=== PATIENT | female | born 1980 | race Caucasian/White ===

== ENCOUNTER 2017-07-12 18:20 | Emergency (ER) | payer MEDICAID ==
[2017-07-12 19:02] LABS: Bilirubin,Urine NEG (Negative); Blood,Urine NEG (Negative); Color,Urine Yellow (Yellow); Mucus,Urine 1+ /HPF; Urobilinogen,Urine < 2.0 mg/dL (<2.0)
[2017-07-12 19:25] LABS: Basophils % (Auto) 0.6 % (0.0-1.8); Eosinophils # (Auto) 0.1 K/mm3 (0.0-0.4); Hematocrit 37.8 % (30.3-42.9); Hemoglobin 12.3 gm/dl (10.1-14.3); Lymphocytes % (Auto) 26.4 % (13.4-35.0); Mean Corpuscular HGB Conc 33 % (30-34); Mean Corpuscular Hemoglobin 28 pg (28-32); Mean Corpuscular Volume 87 fl (79-97); Monocytes # (Auto) 0.7 K/mm3 (0.0-0.8); Platelet Count 193 K/mm3 (140-440); Red Blood Count 4.34 M/mm3 (3.65-5.03); Red Cell Distribution Width 13.2 % (13.2-15.2)
[2017-07-12 19:36] LABS: BUN/Creatinine Ratio 10; Blood Urea Nitrogen 6 mg/dL (7-17); Calcium 8.6 mg/dL (8.4-10.2); Hemolysis Index 4
[2017-07-12] MEDS ORDERED: NARCAN 0.4 MG/1 ML IV ONE (22:37)
--- NOTE | 2017-07-12 22:37 | Emergency Department Report ---
ED General Adult HPI - General Chief complaint: Overdose Stated complaint: POSS OD Time Seen by Provider: 07/12/17 21:57 Source: patient Mode of arrival: Ambulatory Limitations: Other - Related Data Allergies Allergy/AdvReac Type Severity Reaction Status Date / Time No Known Allergies Allergy Verified 07/13/17 04:27 ED Review of Systems ROS: Stated complaint: POSS OD Other details as noted in HPI ED Past Medical Hx - Past Medical History Hx Psychiatric Treatment: Yes (schizophrenia) - Social History Smoking Status: Current Every Day Smoker Substance Use Type: None ED Physical Exam - General Limitations: Other ED Course Vital Signs 07/12/17 07/12/17 07/12/17 18:33 22:00 23:29 Temperature 97.6 F Pulse Rate 95 H 62 Respiratory 16 16 16 Rate Blood Pressure 98/63 Blood Pressure 86/43 [Left] O2 Sat by Pulse 97 97 Oximetry 07/13/17 07/13/17 00:00 02:27 Temperature Pulse Rate 58 L 62 Respiratory 16 14 Rate Blood Pressure Blood Pressure 88/44 98/57 [Left] O2 Sat by Pulse 100 100 Oximetry ED Medical Decision Making - Lab Data Result diagrams: 07/12/17 19:11 07/12/17 19:11 Lab Results 07/12/17 07/12/17 07/12/17 Range/Units 19:11 19:11 19:11 WBC (4.5-11.0) K/mm3 RBC (3.65-5.03) M/mm3 Hgb (10.1-14.3) gm/dl Hct (30.3-42.9) % MCV (79-97) fl MCH (28-32) pg MCHC (30-34) % RDW (13.2-15.2) % Plt Count (140-440) K/mm3 Lymph % (Auto) (13.4-35.0) % [place] % (Auto) (0.0-7.3) % Eos % (Auto) (0.0-4.3) % Baso % (Auto) (0.0-1.8) % Lymph # (1.2-5.4) K/mm3 [place] # (0.0-0.8) K/mm3 Eos # (0.0-0.4) K/mm3 Baso # (0.0-0.1) K/mm3 Seg Neutrophils % (40.0-70.0) % Seg Neutrophils # (1.8-7.7) K/mm3 Sodium 139 (137-145) mmol/L Potassium 4.6 (3.6-5.0) mmol/L Chloride 101.9 (98-107) mmol/L Carbon Dioxide 27 (22-30) mmol/L Anion Gap 15 mmol/L BUN 6 L (7-17) mg/dL Creatinine 0.6 L (0.7-1.2) mg/dL Estimated GFR > 60 ml/min BUN/Creatinine Ratio 10 % Glucose 119 H (65-100) mg/dL Calcium 8.6 (8.4-10.2) mg/dL Urine Color (Yellow) Urine Turbidity (Clear) Urine pH (5.0-7.0) Ur Specific [place] (1.003-1.030) Urine Protein (Negative) mg/dL Urine Glucose (UA) (Negative) mg/dL Urine Ketones (Negative) mg/dL Urine Blood (Negative) Urine Nitrite (Negative) Urine Bilirubin (Negative) Urine Urobilinogen (<2.0) mg/dL Ur Leukocyte Esterase (Negative) Urine WBC (Auto) (0.0-6.0) /HPF Urine RBC (Auto) (0.0-6.0) /HPF U Epithel Cells (Auto) (0-13.0) /HPF Urine Mucus /HPF Urine HCG, Qual (Negative) Salicylates < 0.3 L (2.8-20.0) mg/dL Urine Opiates Screen Urine Methadone Screen Acetaminophen < 5.0 L (10.0-30.0) ug/mL Ur Barbiturates Screen Ur Phencyclidine Scrn Ur Amphetamines Screen U Benzodiazepines Scrn Urine Cocaine Screen U Marijuana (THC) Screen Drugs of Abuse Note Plasma/Serum Alcohol (0-0.07) % 07/12/17 07/12/17 07/12/17 Range/Units 19:11 19:11 22:28 WBC 7.4 (4.5-11.0) K/mm3 RBC 4.34 (3.65-5.03) M/mm3 Hgb 12.3 (10.1-14.3) gm/dl Hct 37.8 (30.3-42.9) % MCV 87 (79-97) fl MCH 28 (28-32) pg MCHC 33 (30-34) % RDW 13.2 (13.2-15.2) % Plt Count 193 (140-440) K/mm3 Lymph % (Auto) 26.4 (13.4-35.0) % [place] % (Auto) 10.0 H (0.0-7.3) % Eos % (Auto) 1.0 (0.0-4.3) % Baso % (Auto) 0.6 (0.0-1.8) % Lymph # 2.0 (1.2-5.4) K/mm3 [place] # 0.7 (0.0-0.8) K/mm3 Eos # 0.1 (0.0-0.4) K/mm3 Baso # 0.0 (0.0-0.1) K/mm3 Seg Neutrophils % 62.0 (40.0-70.0) % Seg Neutrophils # 4.6 (1.8-7.7) K/mm3 Sodium (137-145) mmol/L Potassium (3.6-5.0) mmol/L Chloride (98-107) mmol/L Carbon Dioxide (22-30) mmol/L Anion Gap mmol/L BUN (7-17) mg/dL Creatinine (0.7-1.2) mg/dL Estimated GFR ml/min BUN/Creatinine Ratio % Glucose (65-100) mg/dL Calcium (8.4-10.2) mg/dL Urine Color (Yellow) Urine Turbidity (Clear) Urine pH (5.0-7.0) Ur Specific [place] (1.003-1.030) Urine Protein (Negative) mg/dL Urine Glucose (UA) (Negative) mg/dL Urine Ketones (Negative) mg/dL Urine Blood (Negative) Urine Nitrite (Negative) Urine Bilirubin (Negative) Urine Urobilinogen (<2.0) mg/dL Ur Leukocyte Esterase (Negative) Urine WBC (Auto) (0.0-6.0) /HPF Urine RBC (Auto) (0.0-6.0) /HPF U Epithel Cells (Auto) (0-13.0) /HPF Urine Mucus /HPF Urine HCG, Qual (Negative) Salicylates (2.8-20.0) mg/dL Urine Opiates Screen Presumptive negative Urine Methadone Screen Presumptive negative Acetaminophen (10.0-30.0) ug/mL Ur Barbiturates Screen Presumptive negative Ur Phencyclidine Scrn Presumptive negative Ur Amphetamines Screen Presumptive negative U Benzodiazepines Scrn Presumptive negative Urine Cocaine Screen Presumptive negative U Marijuana (THC) Screen Presumptive negative Drugs of Abuse Note Disclamer Plasma/Serum Alcohol < 0.01 (0-0.07) % 07/12/17 07/12/17 Range/Units 22:28 Unknown WBC (4.5-11.0) K/mm3 RBC (3.65-5.03) M/mm3 Hgb (10.1-14.3) gm/dl Hct (30.3-42.9) % MCV (79-97) fl MCH (28-32) pg MCHC (30-34) % RDW (13.2-15.2) % Plt Count (140-440) K/mm3 Lymph % (Auto) (13.4-35.0) % [place] % (Auto) (0.0-7.3) % Eos % (Auto) (0.0-4.3) % Baso % (Auto) (0.0-1.8) % Lymph # (1.2-5.4) K/mm3 [place] # (0.0-0.8) K/mm3 Eos # (0.0-0.4) K/mm3 Baso # (0.0-0.1) K/mm3 Seg Neutrophils % (40.0-70.0) % Seg Neutrophils # (1.8-7.7) K/mm3 Sodium (137-145) mmol/L Potassium (3.6-5.0) mmol/L Chloride (98-107) mmol/L Carbon Dioxide (22-30) mmol/L Anion Gap mmol/L BUN (7-17) mg/dL Creatinine (0.7-1.2) mg/dL Estimated GFR ml/min BUN/Creatinine Ratio % Glucose (65-100) mg/dL Calcium (8.4-10.2) mg/dL Urine Color Yellow (Yellow) Urine Turbidity Clear (Clear) Urine pH 6.0 (5.0-7.0) Ur Specific [place] 1.024 (1.003-1.030) Urine Protein 30 mg/dl (Negative) mg/dL Urine Glucose (UA) Neg (Negative) mg/dL Urine Ketones Neg (Negative) mg/dL Urine Blood Neg (Negative) Urine Nitrite Neg (Negative) Urine Bilirubin Neg (Negative) Urine Urobilinogen < 2.0 (<2.0) mg/dL Ur Leukocyte Esterase Neg (Negative) Urine WBC (Auto) 1.0 (0.0-6.0) /HPF Urine RBC (Auto) 2.0 (0.0-6.0) /HPF U Epithel Cells (Auto) 5.0 (0-13.0) /HPF Urine Mucus 1+ /HPF Urine HCG, Qual Negative (Negative) Salicylates (2.8-20.0) mg/dL Urine Opiates Screen Urine Methadone Screen Acetaminophen (10.0-30.0) ug/mL Ur Barbiturates Screen Ur Phencyclidine Scrn Ur Amphetamines Screen U Benzodiazepines Scrn Urine Cocaine Screen U Marijuana (THC) Screen Drugs of Abuse Note Plasma/Serum Alcohol (0-0.07) % - EKG Data -: EKG Interpreted by Ar - EKG Data 07/13/17 06:31 EKG shows normal sinus rhythm no ST segment elevation no T wave inversion and normal axis - Radiology Data Radiology results: report reviewed, image reviewed CT head: Shows no acute intracranial abnormality. - Medical Decision Making Chief medical diagnosis: Drug ingestion Differential medical diagnosis: Opioid ingestion, subdural brain bleed I will get CBC, CMP, CT head, EKG urine drug screen and urinalysis. I'll also give patient IV fluids She is still tired but she arouses to verbal stimulation I'll have patient follow up with case management in the morning. Critical care attestation.: If time is entered above; I have spent that time in minutes in the direct care of this critically ill patient, excluding procedure time. ED Disposition Clinical Impression: Tiredness Disposition: DC-01 TO HOME OR SELFCARE Is pt being admited?: No Does the pt Need Aspirin: No Condition: Stable Referrals: PRIMARY CARE,MD [Primary Care Provider] - 3-5 Days
[2017-07-12 23:20] LABS: Amphetamine Screen,Urine PRESUMPTIVE NEGATIVE; Benzodiazepines Screen,Urine PRESUMPTIVE NEGATIVE; Cannabinoid Screen,Urine PRESUMPTIVE NEGATIVE; Cocaine Screen,Urine PRESUMPTIVE NEGATIVE; Methadone Screen,Urine PRESUMPTIVE NEGATIVE; Opiate Screen,Urine PRESUMPTIVE NEGATIVE
[2017-07-13] MEDS ORDERED: NARCAN 2 MG/2 ML IV ONE (01:20)
[2017-07-13] MEDS ORDERED: NACL 0.9% 1000 ML 1,000 ML IV ONE (01:21)
[2017-07-13] MEDS ORDERED: NACL 0.9% 1000 ML 1,000 ML ONE (04:24)
[2017-07-13 05:51] LABS: HCG Qualitative,Urine Negative (Negative)
--- NOTE | 2017-07-13 06:28 | Cat Scan Report ---
FINAL REPORT EXAM: CT HEAD/BRAIN WO CON HISTORY: sleepiness TECHNIQUE: CT imaging acquired through the head without intravenous contrast. Transaxial reformations are provided. PRIORS: None. FINDINGS: The ventricles, cisterns and sulci are normal. No intraparenchymal or extra-axial mass, hemorrhage, or mass effect. Marcial and white-matter differentiation is normal. Normal spherical shape of the globes. Paranasal sinuses and mastoid air cells are clear. No skull or facial fracture visualized. IMPRESSION: No acute intracranial abnormality.
--- NOTE | 2017-07-13 16:51 | Emergency Department Report ---
HPI - General Chief Complaint: Overdose Time Seen by Provider: 07/12/17 21:57 - HPI HPI: Interval note, 1645 hrs. Patient received in transfer care from preceded physician, Dr. Caban, with history of being confused and past history of schizophrenia, having brought in by [facility] [employer], with report that she was found on the street, had taken some unknown medications, possibly a pill or two, but without reported suicidal intent, and patient was brought in for further care. Initial evaluation by Dr. Lindsey was unremarkable, and patient was drowsy but otherwise stable awaiting results of social media campaign manager evaluation during time of being prepared for discharge. interlibrary loan services librarian apparently made attempts to interview patient, who was either sleeping, or reportedly not making sense, or refusing to interact, and no meaningful evaluation was performed prior to the end of shift. I evaluated patient shortly prior to dictating this note, and have reviewed patient's laboratory findings, which are generally unremarkable, and find her to be physically stable, being awake and oriented, blood pressure is 118/83, with no findings of acute trauma, no head or neck tenderness, clear lungs, soft benign although obese abdomen, and no physical injury to the extremities. Nonetheless, slightly an awake, patient still appears to be mildly psychotic, could be and oriented primarily to name, and although she can give the name of her father, does not know his telephone number, and cannot give any addresses. Further, patient cannot name any of her medications, and cannot give any recent addresses where she has stated before. Although patient is physiologically stable, I do not believe that she has sufficient mental capacity in order to either make her way home, or to take medications, even if we were to find him and prescribe them for her. I believe patient needs psychiatric evaluation, as she is clearly unable to take care of herself in this state. Patient will be confined under 1013 restraining orders, and will be kept comfortable pending psychiatric evaluation. Patient will be medicated with quetiapine in the interim. When necessary lorazepam will also be ordered as well. ED Past Medical Hx - Past Medical History Hx Psychiatric Treatment: Yes (schizophrenia) - Social History Smoking Status: Current Every Day Smoker Substance Use Type: None ED Review of Systems ROS: Stated complaint: POSS OD Other details as noted in HPI Physical Exam - Physical Exam Vital Signs: Vital Signs 05/10/18 05/10/18 05/10/18 18:33 22:00 23:29 Temperature 97.6 F Pulse Rate 95 H 62 Respiratory 16 16 16 Rate Blood Pressure 98/63 Blood Pressure 86/43 [Left] O2 Sat by Pulse 97 97 Oximetry 07/13/17 07/13/17 07/13/17 00:00 02:27 04:58 Temperature Pulse Rate 58 L 62 59 L Respiratory 16 14 13 Rate Blood Pressure 92/44 Blood Pressure 88/44 98/57 [Left] O2 Sat by Pulse 100 100 100 Oximetry 07/13/17 07/13/17 07/13/17 05:00 05:15 05:30 Temperature Pulse Rate 62 54 L 65 Respiratory 11 L 16 6 L Rate Blood Pressure 92/44 93/44 93/44 Blood Pressure [Left] O2 Sat by Pulse 100 100 100 Oximetry 07/13/17 07/13/17 07/13/17 05:46 06:12 06:16 Temperature Pulse Rate 75 Respiratory 15 Rate Blood Pressure 90/51 90/51 90/51 Blood Pressure [Left] O2 Sat by Pulse 100 99 100 Oximetry 07/13/17 07/13/17 07/13/17 06:30 06:46 07:00 Temperature Pulse Rate 82 72 78 Respiratory 13 14 15 Rate Blood Pressure 98/50 107/56 107/56 Blood Pressure [Left] O2 Sat by Pulse 92 98 100 Oximetry 07/13/17 07/13/17 07/13/17 07:16 07:30 07:46 Temperature Pulse Rate 69 69 72 Respiratory 14 15 16 Rate Blood Pressure 95/53 95/53 90/53 Blood Pressure [Left] O2 Sat by Pulse 100 100 100 Oximetry 07/13/17 07/13/17 07/13/17 08:00 08:16 08:38 Temperature Pulse Rate 69 109 H 67 Respiratory 15 20 17 Rate Blood Pressure 90/53 91/48 Blood Pressure [Left] O2 Sat by Pulse 99 99 100 Oximetry 07/13/17 07/13/17 07/13/17 08:46 09:00 09:15 Temperature Pulse Rate 71 76 86 Respiratory 15 18 20 Rate Blood Pressure 99/55 95/59 103/56 Blood Pressure [Left] O2 Sat by Pulse 100 100 100 Oximetry 07/13/17 07/13/17 07/13/17 09:30 09:45 10:00 Temperature Pulse Rate 66 68 Respiratory 14 14 13 Rate Blood Pressure 96/56 88/46 83/43 Blood Pressure [Left] O2 Sat by Pulse 100 100 99 Oximetry 07/13/17 07/13/17 07/13/17 10:15 10:30 12:23 Temperature Pulse Rate 74 Respiratory 14 16 16 Rate Blood Pressure 87/44 90/46 Blood Pressure 116/75 [Left] O2 Sat by Pulse 100 99 96 Oximetry ED Course Vital Signs 07/12/17 07/12/17 07/12/17 18:33 22:00 23:29 Temperature 97.6 F Pulse Rate 95 H 62 Respiratory 16 16 16 Rate Blood Pressure 98/63 Blood Pressure 86/43 [Left] O2 Sat by Pulse 97 97 Oximetry 07/13/17 07/13/17 07/13/17 00:00 02:27 04:58 Temperature Pulse Rate 58 L 62 59 L Respiratory 16 14 13 Rate Blood Pressure 92/44 Blood Pressure 88/44 98/57 [Left] O2 Sat by Pulse 100 100 100 Oximetry 07/13/17 07/13/17 07/13/17 05:00 05:15 05:30 Temperature Pulse Rate 62 54 L 65 Respiratory 11 L 16 6 L Rate Blood Pressure 92/44 93/44 93/44 Blood Pressure [Left] O2 Sat by Pulse 100 100 100 Oximetry 07/13/17 07/13/17 07/13/17 05:46 06:12 06:16 Temperature Pulse Rate 75 Respiratory 15 Rate Blood Pressure 90/51 90/51 90/51 Blood Pressure [Left] O2 Sat by Pulse 100 99 100 Oximetry 07/13/17 07/13/17 07/13/17 06:30 06:46 07:00 Temperature Pulse Rate 82 72 78 Respiratory 13 14 15 Rate Blood Pressure 98/50 107/56 107/56 Blood Pressure [Left] O2 Sat by Pulse 92 98 100 Oximetry 07/13/17 07/13/17 07/13/17 07:16 07:30 07:46 Temperature Pulse Rate 69 69 72 Respiratory 14 15 16 Rate Blood Pressure 95/53 95/53 90/53 Blood Pressure [Left] O2 Sat by Pulse 100 100 100 Oximetry 07/13/17 07/13/17 07/13/17 08:00 08:16 08:38 Temperature Pulse Rate 69 109 H 67 Respiratory 15 20 17 Rate Blood Pressure 90/53 91/48 Blood Pressure [Left] O2 Sat by Pulse 99 99 100 Oximetry 07/13/17 07/13/17 07/13/17 08:46 09:00 09:15 Temperature Pulse Rate 71 76 86 Respiratory 15 18 20 Rate Blood Pressure 99/55 95/59 103/56 Blood Pressure [Left] O2 Sat by Pulse 100 100 100 Oximetry 07/13/17 07/13/17 07/13/17 09:30 09:45 10:00 Temperature Pulse Rate 66 68 Respiratory 14 14 13 Rate Blood Pressure 96/56 88/46 83/43 Blood Pressure [Left] O2 Sat by Pulse 100 100 99 Oximetry 07/13/17 07/13/17 07/13/17 10:15 10:30 12:23 Temperature Pulse Rate 74 Respiratory 14 16 16 Rate Blood Pressure 87/44 90/46 Blood Pressure 116/75 [Left] O2 Sat by Pulse 100 99 96 Oximetry ED Medical Decision Making - Lab Data Result diagrams: 07/12/17 19:11 07/12/17 19:11 - EKG Data -: EKG Interpreted by Me (other than mild sinus bradycardia, normal EKG with no acute findings.) EKG shows normal: sinus rhythm, axis (normal axis of 31), intervals (normal QT interval 473 ms corrected), QRS complexes (normal QRS complex), ST-T waves ( normal ST segments and T waves.) Rate: bradycardia - Radiology Data Radiology results: report reviewed No acute pathology on noncontrast CT scan of the brain - Medical Decision Making Patient being held on 1013 confinement, for psychiatric evaluation, this patient is clinically stable, but does not possess sufficient capacity mentally in order to take care of herself, not been able to describe a hole in department , her own medications, or ability to show that she can plan for her daily needs once discharged. She will need psychiatric care, and will be sedated in the meantime for control of mood and anxiety. - Differential Diagnosis acute psychosis, exacerbation schizophrenia, acting out disorder Critical Care Time: No Critical care attestation.: If time is entered above; I have spent that time in minutes in the direct care of this critically ill patient, excluding procedure time. ED Disposition Clinical Impression: Tiredness Disposition: DC/TX-65 PSY HOSP/PSY UNIT Is pt being admited?: No Does the pt Need Aspirin: No Condition: Stable Referrals: PRIMARY CARE, [Primary Care Provider] - 3-5 Days Time of Disposition: 16:52
[2017-07-13] MEDS ORDERED: ATIVAN PO PRN (16:54)
--- NOTE | 2017-07-14 14:21 | Consultation ---
History of Present Illness - Reason for Consult Consult date: 07/14/17 Reason for consult: Initial Psychiatric Evaluation - History of Present Psychiatric Illness Provider unable to assess. Patient answer questions inappropriately. She states , "I don't know." Will attempt to reassess at a later date. Patient appears cognitively delayed. Medications and Allergies Allergies Allergy/AdvReac Type Severity Reaction Status Date / Time No Known Allergies Allergy Verified 07/13/17 04:27 Active Meds: Active Medications Lorazepam (Ativan) 1 mg PO Q6HR PRN PRN Reason: Agitation Quetiapine Fumarate (Seroquel) 200 mg PO DAILY MEHDI Last Admin: 07/14/17 11:13 Dose: 200 mg Mental Status Exam - Vital signs Last Vital Signs Temp 98.3 F 07/13/17 23:15 Pulse 92 H 07/13/17 23:15 Resp 16 07/13/17 23:15 BP 156/78 07/13/17 23:15 Pulse Ox 97 07/13/17 23:15 Results Result Diagrams: 07/12/17 19:11 07/12/17 19:11 All other labs normal.
[2017-07-15 20:52] VITALS: BP 136/83
== END 2017-07-15 23:50 ==
LOC: EEVIPCON 18:20 → ED 18:20
DX: R53.83 Other fatigue (principal); F20.9 Schizophrenia, unspecified; F17.200 Nicotine dependence, unspecified, uncomplicated
CPT/HCPCS: 36415; 70450; 80048; 80307; 81001; 81025; 85025; 96361; 96374; 96376; 99285; G0480; J2310; J7030; 80320

== ENCOUNTER 2017-07-29 17:11 | Emergency (ER) | payer MEDICAID ==
[2017-07-29 17:17] VITALS: BP 102/49
== END 2017-07-29 17:40 | disposition left against medical advice (07) ==
LOC: ED 17:11
DX: Z53.21 Procedure and treatment not carried out due to patient leaving prior to being seen by health care provider (principal)

== ENCOUNTER 2017-08-22 21:37 | Emergency (ER) | payer MEDICAID ==
[2017-08-23 00:47] LABS: Basophils # (Auto) 0.1 K/mm3 (0.0-0.1); Eosinophils # (Auto) 0.1 K/mm3 (0.0-0.4); Eosinophils % (Auto) 1.3 % (0.0-4.3); Hematocrit 35.6 % (30.3-42.9); Lymphocytes % (Auto) 35.5 % (13.4-35.0); Mean Corpuscular HGB Conc 34 % (30-34); Mean Corpuscular Hemoglobin 29 pg (28-32); Mean Corpuscular Volume 86 fl (79-97); Monocytes # (Auto) 0.6 K/mm3 (0.0-0.8); Monocytes % (Auto) 6.9 % (0.0-7.3); Red Blood Count 4.14 M/mm3 (3.65-5.03); Red Cell Distribution Width 13.3 % (13.2-15.2)
[2017-08-23 01:05] LABS: BUN/Creatinine Ratio 16; Blood Urea Nitrogen 8 mg/dL (7-17); Calcium 8.2 mg/dL (8.4-10.2); Hemolysis Index 67
[2017-08-23 01:14] LABS: Platelet Count 133 K/mm3 (140-440)
--- NOTE | 2017-08-23 01:57 | Emergency Department Report ---
HPI - General Chief Complaint: Psych Time Seen by Provider: 08/23/17 00:03 - HPI HPI: This is a 36-year-old female who presents to the emergency department allegedly via PD. The patient says that the police department was called by the people working at the [employer] restaurant she was at. She says she was not eating there and the police were called when she would not leave. When I asked why she was at the restaurant and what she was doing there, she says to be put into the hospital. I asked the patient if she lives by herself, has roommates or what her living situation is and the patient says "I don't have a home." She denies any medical or psychiatric history. She is a poor historian regarding the events of today and any past history. ED Past Medical Hx - Past Medical History Previous Medical History?: Yes Hx Psychiatric Treatment: Yes (schizophrenia) - Surgical History Past Surgical History?: No - Social History Smoking Status: Unknown if ever smoked Substance Use Type: None - Medications Home Medications: Home Medications Medication Instructions Recorded Confirmed Last Taken Type Unobtainable 07/15/17 08/23/17 Unknown History ED Review of Systems ROS: Stated complaint: MH Other details as noted in HPI Comment: All other systems reviewed and negative Constitutional: denies: chills, fever Eyes: denies: eye pain, eye discharge, vision change ENT: denies: ear pain, throat pain Respiratory: denies: cough, shortness of breath, wheezing Cardiovascular: denies: chest pain, palpitations Gastrointestinal: denies: abdominal pain, nausea, diarrhea Genitourinary: denies: urgency, dysuria, discharge Musculoskeletal: denies: back pain, joint swelling, arthralgia Skin: denies: rash, lesions Neurological: denies: headache, weakness, paresthesias Physical Exam - Physical Exam Vital Signs: Vital Signs 08/22/17 23:25 Temperature 97.8 F Pulse Rate 94 H Respiratory 20 Rate Blood Pressure 132/72 O2 Sat by Pulse 98 Oximetry Physical Exam: GENERAL: The patient is well-developed well-nourished. HENT: Normocephalic. Atraumatic. Patient has moist mucous membranes. EYES: Extraocular motions are intact. Pupils equal reactive to light bilaterally. NECK: Supple. Trachea is midline.. CHEST/LUNGS: Clear to auscultation. There is no respiratory distress noted. HEART/CARDIOVASCULAR: Regular. There is no tachycardia. There is no murmur. ABDOMEN: Abdomen is soft, nontender. Patient has normal bowel sounds. There is no abdominal distention. SKIN: Skin is warm and dry. NEURO: Patient is awake and alert but a poor historian and were non- cooperative. She gives very simple 1 word answers to most questions. She follows some commands but I believe it is more effort based than inability to do so or any acute neurological deficits. MUSCULOSKELETAL: There is no tenderness or deformity. There is no limitation range of motion. There is no evidence of acute injury. ED Course Vital Signs 08/22/17 23:25 Temperature 97.8 F Pulse Rate 94 H Respiratory 20 Rate Blood Pressure 132/72 O2 Sat by Pulse 98 Oximetry - Consultations Consultation #1: 08/23/17 01:55 The patient was seen by the psych centrifuge operator Ben, who suggested that the patient should be seen by the psychiatric team as well as case management but does not necessarily require a 1013 at this time. The patient denies any suicidal or homicidal ideations or any hallucinations. However it is hard to obtain any information regarding any past medical history including if there is any history of developmental delay or any history of the patient's living situation. ED Medical Decision Making - Lab Data Result diagrams: 08/22/17 23:48 08/22/17 23:48 - Medical Decision Making Patient presented after the police were called and her from a [employer] restaurant. She is unable to give any history as to what she was doing there or why the police were called. There is some questionable psychiatric history. Labs were unremarkable and do not show any etiology of her symptoms. Vital signs stable throughout her ED course. She was seen by the psych centrifuge operator last night we did not feel that we should immediately fill out a 1013 the patient would be seen by the psychiatric team and if cleared, we would get case management involved. However in looking at the consultation report from this morning, the patient continues to display some bizarre behavior that could be considered acute psychosis and she was made a 1013 by the psychiatric team. She appears medically cleared for inpatient psychiatric treatment. - Differential Diagnosis schizophrenia, bipolar disorder, schizoaffective, substance abuse Critical Care Time: No Critical care attestation.: If time is entered above; I have spent that time in minutes in the direct care of this critically ill patient, excluding procedure time. ED Disposition Clinical Impression: Psychosis Qualifiers: Psychosis type: unspecified psychosis type Qualified Code(s): F29 - Unspecified psychosis not due to a substance or known physiological condition Disposition: DC/TX-65 PSY HOSP/PSY UNIT Is pt being admited?: No Condition: Stable Referrals: PRIMARY CARE, [Primary Care Provider] - 3-5 Days Time of Disposition: 20:05
[2017-08-23 02:01] LABS: Bilirubin,Urine NEG (Negative); Blood,Urine NEG (Negative); Color,Urine Yellow (Yellow); Mucus,Urine FEW /HPF; Protein,Urine <15 mg/dL mg/dL (Negative); Urobilinogen,Urine < 2.0 mg/dL (<2.0); WBC,Urine < 1.0 /HPF (0.0-6.0)
[2017-08-23 02:09] LABS: Amphetamine Screen,Urine PRESUMPTIVE NEGATIVE; Benzodiazepines Screen,Urine PRESUMPTIVE NEGATIVE; Cannabinoid Screen,Urine PRESUMPTIVE NEGATIVE; Cocaine Screen,Urine PRESUMPTIVE NEGATIVE; Methadone Screen,Urine PRESUMPTIVE NEGATIVE; Opiate Screen,Urine PRESUMPTIVE NEGATIVE
--- NOTE | 2017-08-23 12:21 | Consultation ---
History of Present Illness - Reason for Consult Consult date: 08/23/17 Reason for consult: Mental Health Evaluation Requesting physician: ROSA MARIA SCHILLING - Chief Complaint Chief complaint: "I don't know" - History of Present Psychiatric Illness 36-year-old female who presents to the emergency department allegedly via PD for bizarre behavior. Today the patient is calm, but tangent during the assessment. She could not described what happened at the [facility] prior to her arrival to the ER. The patient answers all questions with "I don't know." She did state that she may need "mental health." This patient is a poor historian at this time. Medications and Allergies Allergies Allergy/AdvReac Type Severity Reaction Status Date / Time No Known Allergies Allergy Verified 07/29/17 17:14 Home Medications Medication Instructions Recorded Confirmed Last Taken Type Unobtainable 07/15/17 08/23/17 Unknown History Past psychiatric history - Past Medical History Past Medical History: other (Unable to obtain) Past Surgical History: Other (Unable to obtain) - past Psychiatric treatment and history psychiatric treatment history: Unable to obtain a psy hx and a fam psy hx. - Social History Social history: other (Unable to obtain) Mental Status Exam - Vital signs Last Vital Signs Temp 97.8 F 08/22/17 23:25 Pulse 94 H 08/22/17 23:25 Resp 20 08/22/17 23:25 BP 132/72 08/22/17 23:25 Pulse Ox 98 08/22/17 23:25 - Exam Narrative exam: MSE: Appearance: cooperative Behavior: poor eye contact Speech: regular rate and tone Mood: "I don't know" Affect: normal Thought Process: tangential Thought Content: no geatures of SI/HI's Motor Activity: lying in bed Cognition: A/O x3 Insight: poor Judgment: poor Results Result Diagrams: 08/22/17 23:48 08/22/17 23:48 Abnormal lab results 08/22/17 08/22/17 08/22/17 Range/Units 23:48 23:48 23:48 Plt Count (140-440) K/mm3 Lymph % (Auto) (13.4-35.0) % Creatinine 0.5 L (0.7-1.2) mg/dL Calcium 8.2 L (8.4-10.2) mg/dL Salicylates < 0.3 L (2.8-20.0) mg/dL Acetaminophen < 5.0 L (10.0-30.0) ug/mL 08/22/17 Range/Units 23:48 Plt Count 133 L (140-440) K/mm3 Lymph % (Auto) 35.5 H (13.4-35.0) % Creatinine (0.7-1.2) mg/dL Calcium (8.4-10.2) mg/dL Salicylates (2.8-20.0) mg/dL Acetaminophen (10.0-30.0) ug/mL All other labs normal. Assessment and Plan Assessment and plan: Impression: Unspecified Psychosis. Today the patient is calm, but tangent during the assessment. UDS is negative. DDx: R/O Bipolar DO, R/O Schizophrenia Recommendation/Plan: Continue 1013 with placement to inpatient psy services. Start Geodon 20 mg PO BID for psychosis. Attempted to discuss possible metabolic side effects with patient. Give medication with food.
[2017-08-23] MEDS: GEODON PO SCH ×2 (17:00→22:35)
--- NOTE | 2017-08-24 11:03 | Progress Note ---
Subjective - Reason for Consult Consult date: 08/24/17 Reason for consult: Psychiatry Follow-up - Chief Complaint Chief complaint: "Hello" 36-year-old female who presents to the emergency department allegedly via PD for bizarre behavior. Today the patient is calm during the assessment. She had to be redirected several time to keep her on topic. Also, she would mumbles some answers to questions asked of her. No indication of side effects of her medication. Mental Status Exam - Vital signs Last Vital Signs Temp 98.7 F 08/23/17 19:42 Pulse 91 H 08/23/17 19:42 Resp 17 08/23/17 19:42 BP 135/72 08/23/17 19:42 Pulse Ox 98 08/23/17 19:42 - Exam Narrative exam: MSE: Appearance: calm Behavior: poor eye contact Speech: regular rate and tone Mood: "okay" Affect: flat Thought Process: loose association Thought Content: no gestures of SI/HI's Motor Activity: lying in bed Cognition: A/O x3 Insight: poor Judgment: poor Assessment and Plan Impression: Unspecified Psychosis. Today the patient is calm during the assessment. UDS is negative. DDx: R/O Bipolar DO, R/O Schizophrenia Recommendation/Plan: Continue 1013 with placement to inpatient psy services. Continue Geodon 20 mg PO BID for psychosis. Attempted to discuss possible metabolic side effects with patient. Give medication with food.
[2017-08-24] MEDS: GEODON PO SCH ×2 (11:39→22:07)
[2017-08-25] MEDS: GEODON PO SCH ×2 (11:09→22:01)
--- NOTE | 2017-08-25 16:45 | Progress Note ---
Subjective - Reason for Consult Consult date: 08/25/17 Reason for consult: Psychiatric Follow-up Evaluation - Chief Complaint Chief complaint: "Fine " Patient is a 36-year-old female who presents to the emergency department allegedly via PD for bizarre behavior. She states " I don't know why I'm here. I forgot." Per patient she has good sleep and appetite. She denies SI/HI, A/V/T hallucinations, and delusions. Reports medication compliance. She denies any side effects to medications. Mental Status Exam - Vital signs Last Vital Signs Temp 97.9 F 08/24/17 19:15 Pulse 102 H 08/24/17 19:15 Resp 18 08/24/17 19:15 BP 127/75 08/24/17 19:15 Pulse Ox 100 08/24/17 19:15 - Exam Narrative exam: Mental Status Exam: Appearance: Casually dressed, hospital gown Attitude/ Behavior: Cooperative but guarded Eye contact: Intermittent Sensorium: Distracted Psychomotor and Musculoskeletal Activity: Laying in bed but ambulatory Speech: Normal rate and tone Affect: Constricted Mood: "Fine" Thought Process: Circumstantial Thought Content: Impoverished. Denies delusions. Perception: Patient denies A/V/T hallucinations. Suicidal Ideation/Plan: Patient denies. Homicidal Ideation/plan: Patient denies. Insight: Variable Judgment: Variable Assessment and Plan Impression: Unspecified Psychosis. Today the patient is calm and cooperative during the assessment. Impoverished thought content. Guarded during assessment. She denies SI/HI, A/VH, and delusions. UDS is negative. DDx: R/O Bipolar DO, R/O Schizophrenia Recommendation/Plan: 1. Continue 1013 with placement to inpatient psychiatric services. 2. Continue Geodon 20 mg PO BID for psychosis. Attempted to discuss possible metabolic side effects with patient. Give medication with food. 3. Will continue to monitor mood, psychosis, sleep, appetite, compliance, and side effects.
--- NOTE | 2017-08-26 09:28 | Progress Note ---
Subjective - Reason for Consult Consult date: 08/26/17 Reason for consult: Psychiatry Follow-up - Chief Complaint Chief complaint: "Good morning" 36-year-old female who presents to the emergency department allegedly via PD for bizarre behavior. Today the patient is calm and cooperative during the assessment. She was more organized and lucid today than previous interviews. She wrote down her current address when asked. She wasn't able to answer questions about her mental health. She denies SI/HI's and AVH's. No indications of side effects of her medication. Mental Status Exam - Vital signs Last Vital Signs Temp 98.7 F 08/26/17 08:01 Pulse 82 08/26/17 08:01 Resp 18 08/26/17 08:01 BP 120/66 08/26/17 08:01 Pulse Ox 97 08/26/17 08:01 - Exam Narrative exam: MSE: Appearance: calm, cooperative Behavior: regular eye contact Speech: regular rate and tone Mood: "okay" Affect: congruent to mood Thought Process: circumstantial Thought Content: denies SI/HI's and AVH's. Motor Activity: ambulatory Cognition: A/O x3 Insight: variable Judgment: variable Assessment and Plan Impression: Unspecified Psychosis. Today the patient is calm during the assessment. UDS is negative. DDx: R/O Bipolar DO, R/O Schizophrenia Recommendation/Plan: Reevaluate 1013 in 24 hours to determine proper dispo. Continue Geodon 20 mg PO BID for psychosis. Discussed possible metabolic side effects with patient. Give medication with food. The patient wrote down the following address as her place of residence: [address] [place] [address]. Case Mgmt involvement, patient may need assistance with placement once discharged.
[2017-08-26] MEDS: GEODON PO SCH ×2 (10:16→22:26)
[2017-08-27] MEDS: GEODON PO SCH ×2 (10:15→22:12)
--- NOTE | 2017-08-27 13:11 | Progress Note ---
Subjective - Reason for Consult Consult date: 08/27/17 Reason for consult: Psychiatry Follow-up - Chief Complaint Chief complaint: "Hello" 36-year-old female who presents to the emergency department allegedly via PD for bizarre behavior. Today the patient is calm during the assessment. She was disorganized with loose associations during the assessment. The patient has regressed since yesterday. Per collateral information from her father Willie Marinelli at [phone], he stated that his daughter has a mental illness. He could not answer most questions because of a language barrier. Per the notes, the patient had been missing from home for several days prior to being brought to the ER. No gestures of SI/HI's. Mental Status Exam - Vital signs Last Vital Signs Temp 97.8 F 08/27/17 08:30 Pulse 78 08/27/17 08:30 Resp 16 08/27/17 08:30 BP 111/73 08/27/17 08:30 Pulse Ox 98 08/27/17 08:30 - Exam Narrative exam: MSE: Appearance: calm, cooperative Behavior: regular eye contact Speech: regular rate and tone Mood: "okay" Affect: congruent to mood Thought Process: disorganized, loose associations Thought Content: no gestures of SI/HI's and AVH's. Motor Activity: ambulatory Cognition: A/O x3 Insight: poor Judgment: poor Assessment and Plan Impression: Unspecified Psychosis. Today the patient is calm during the assessment. She was disorganized with loose association during the assessment. UDS is negative. DDx: R/O Bipolar DO, R/O Schizophrenia Recommendation/Plan: Continue 1013 with placement to inpatient psy services. Increase Geodon to 40 mg PO BID for psychosis. Discussed possible metabolic side effects with patient. Give medication with food. The patient wrote down the following address as her place of residence: [address] [place] [address]. Case Mgmt involvement, patient may need assistance with placement once discharged.
[2017-08-28] MEDS: GEODON PO SCH ×2 (09:44→23:42)
--- NOTE | 2017-08-28 09:57 | Progress Note ---
Subjective - Reason for Consult Consult date: 08/28/17 Reason for consult: Psychiatry Follow-up - Chief Complaint Chief complaint: "Good morning" 36-year-old female who presents to the emergency department allegedly via PD for bizarre behavior. Today the patient is calm during the assessment. She stated that she is feeling better and would like to go home. She denies SI/HI's and AVH's. She denies any side effects of her medication. Mental Status Exam - Vital signs Last Vital Signs Temp 98.0 F 08/28/17 08:25 Pulse 88 08/28/17 08:25 Resp 20 08/28/17 08:25 BP 104/67 08/28/17 08:25 Pulse Ox 98 08/28/17 08:25 - Exam Narrative exam: MSE: Appearance: calm, cooperative Behavior: regular eye contact Speech: regular rate and tone Mood: "okay" Affect: congruent to mood Thought Process: circumstantial Thought Content: denies SI/HI's and AVH's Motor Activity: ambulatory Cognition: A/O x3 Insight: variable Judgment: variable Assessment and Plan Impression: Unspecified Psychosis. Today the patient is calm during the assessment. She was calm and cooperative during the assessment. UDS is negative. DDx: R/O Bipolar DO, R/O Schizophrenia Recommendation/Plan: Reevaluate 1013 in 24 hours to determine proper dispo. Continue Geodon to 40 mg PO BID for psychosis. Discussed possible metabolic side effects with patient. Give medication with food. The patient wrote down the following address as her place of residence: [address] [place] [address]. Case Mgmt involvement, patient may need assistance with transportation home once discharged.
[2017-08-29] MEDS: GEODON PO SCH (10:14)
--- NOTE | 2017-08-29 13:32 | Progress Note ---
Subjective - Reason for Consult Consult date: 08/29/17 Reason for consult: Psychiatric Follow-up Evaluation - Chief Complaint Chief complaint: "Alright" Patient is a 36-year-old female who presents to the emergency department allegedly via PD for bizarre behavior. Today the patient is calm and cooperative during the assessment. Patient seen sleeping earlier. Although cooperative patient thought process is impoverished. She denies SI/HI, A/VH, and delusions. She reports medication compliance. She denies any side effects of her medication. Mental Status Exam - Vital signs Last Vital Signs Temp 98 F 08/29/17 09:24 Pulse 98 H 08/29/17 09:24 Resp 16 08/29/17 11:08 BP 122/71 08/29/17 09:24 Pulse Ox 98 08/29/17 11:08 - Exam Narrative exam: Mental Status Exam: Appearance: Casually dressed, hospital gown Attitude/ Behavior: Cooperative but guarded Eye contact: Intermittent Sensorium: Distracted Orientation: Alert and oriented x 4 ( person, place, time, and situation) Psychomotor and Musculoskeletal Activity: Laying in bed Speech: Normal rate and tone Affect: Constricted Mood: "Fine" Thought Process: Circumstantial Thought Content: Impoverished. Denies delusions. Perception: Patient denies A/V/T hallucinations. Suicidal Ideation/Plan: Patient denies. Homicidal Ideation/plan: Patient denies. Insight: Variable Judgment: Variable Assessment and Plan Impression: Unspecified Psychosis. Today the patient is calm and cooperative during the assessment. Thought content impoverished and somewhat guarded. UDS is negative. She denies SI/HI, A/VH, and delusions. DDx: R/O Bipolar DO, R/O Schizophrenia Recommendation/Plan: 1. Continue 1013 and reassess in 24 hours to determine proper disposition. 2. Continue Geodon to 40 mg PO BID for psychosis. Discussed possible metabolic side effects with patient. Give medication with food. The patient wrote down the following address as her place of residence: [address] [place], [place] [id number]. Case Mgmt involvement, patient may need assistance with transportation home once discharged. 3. Will continue to monitor mood, psychosis, sleep, appetite, compliance, and side effects.
[2017-08-29 18:59] VITALS: BP 117/61
== END 2017-08-29 22:00 ==
LOC: ED 21:37 → EEVIPCON 21:37 → ED 08-29 22:00
DX: F29 Unspecified psychosis not due to a substance or known physiological condition (principal); F20.9 Schizophrenia, unspecified; Z79.899 Other long term (current) drug therapy
CPT/HCPCS: 36415; 80048; 80307; 81001; 85025; 99285; G0480; 80320

== ENCOUNTER 2017-12-02 20:16 | Emergency (ER) | payer MEDICAID ==
[2017-12-02 21:07] LABS: Basophils # (Auto) 0.2 K/mm3 (0.0-0.1); Basophils % (Auto) 2.5 % (0.0-1.8); Eosinophils # (Auto) 0.4 K/mm3 (0.0-0.4); Eosinophils % (Auto) 4.7 % (0.0-4.3); Hematocrit 36.6 % (30.3-42.9); Lymphocytes # (Auto) 2.3 K/mm3 (1.2-5.4); Lymphocytes % (Auto) 25.1 % (13.4-35.0); Mean Corpuscular HGB Conc 33 % (30-34); Mean Corpuscular Hemoglobin 28 pg (28-32); Mean Corpuscular Volume 86 fl (79-97); Monocytes # (Auto) 0.7 K/mm3 (0.0-0.8); Monocytes % (Auto) 7.7 % (0.0-7.3); Platelet Count 262 K/mm3 (140-440); Red Blood Count 4.28 M/mm3 (3.65-5.03); Red Cell Distribution Width 13.9 % (13.2-15.2)
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
[2017-12-02 21:25] LABS: BUN/Creatinine Ratio 11; Blood Urea Nitrogen 10 mg/dL (7-17); Calcium 8.9 mg/dL (8.4-10.2); Hemolysis Index 4
[2017-12-03 04:15] LABS: Amorphous Crystals,Urine Few; Bilirubin,Urine NEG (Negative); Blood,Urine NEG (Negative); Color,Urine Yellow (Yellow); Mucus,Urine FEW /HPF; Protein,Urine <15 mg/dL mg/dL (Negative)
[2017-12-03 04:23] LABS: Amphetamine Screen,Urine PRESUMPTIVE NEGATIVE; Benzodiazepines Screen,Urine PRESUMPTIVE NEGATIVE; Cannabinoid Screen,Urine PRESUMPTIVE NEGATIVE; Cocaine Screen,Urine PRESUMPTIVE NEGATIVE; Methadone Screen,Urine PRESUMPTIVE NEGATIVE; Opiate Screen,Urine PRESUMPTIVE NEGATIVE
[2017-12-03 09:55] VITALS: BP 119/75
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
[2017-12-03] MEDS ORDERED: GEODON PO SCH (14:00)
== END 2017-12-03 19:12 ==
LOC: ED 20:16
DX: F20.9 Schizophrenia, unspecified (principal)
CPT/HCPCS: 36415; 80048; 80307; 81001; 84703; 85025; 99285; G0480; 80320

== ENCOUNTER 2018-04-08 01:05 | Emergency (ER) | payer MEDICAID ==
[2018-04-08 04:53] LABS: Basophils # (Auto) 0.1 K/mm3 (0.0-0.1); Basophils % (Auto) 1.2 % (0.0-1.8); Eosinophils # (Auto) 0.3 K/mm3 (0.0-0.4); Eosinophils % (Auto) 4.3 % (0.0-4.3); Hematocrit 35.1 % (30.3-42.9); Hemoglobin 11.8 gm/dl (10.1-14.3); Lymphocytes # (Auto) 2.7 K/mm3 (1.2-5.4); Lymphocytes % (Auto) 41.7 % (13.4-35.0); Mean Corpuscular HGB Conc 34 % (30-34); Mean Corpuscular Volume 84 fl (79-97); Monocytes # (Auto) 0.6 K/mm3 (0.0-0.8); Monocytes % (Auto) 8.7 % (0.0-7.3); Platelet Count 220 K/mm3 (140-440); Red Blood Count 4.19 M/mm3 (3.65-5.03); Red Cell Distribution Width 14.3 % (13.2-15.2)
[2018-04-08 05:14] LABS: BUN/Creatinine Ratio 24; Blood Urea Nitrogen 12 mg/dL (7-17); Calcium 8.8 mg/dL (8.4-10.2); Hemolysis Index 13
--- NOTE | 2018-04-08 06:39 | Emergency Department Report ---
ED General Adult HPI - General Chief complaint: Psych Stated complaint: MH EVAL Time Seen by Provider: 04/08/18 06:22 Source: patient, EMS (ems notes not available at time of chart dictation), RN notes reviewed, old records reviewed Mode of arrival: Stretcher Limitations: Other (patient is a poor historian) - History of Present Illness Initial comments: This is a 37-year-old female. The patient presented to the emergency room with a complaint of homelessness. The patient has not indicated that she is having any physical pain. The patient reports that she is not . The patient denies homicidality and suicidality. Consistency: constant Improves with: none Worsens with: none - Related Data Home Medications Medication Instructions Recorded Confirmed Last Taken Unobtainable 01/10/18 01/10/18 Unknown Allergies Allergy/AdvReac Type Severity Reaction Status Date / Time No Known Allergies Allergy Verified 07/29/17 17:14 ED Review of Systems ROS: Stated complaint: MH EVAL Other details as noted in HPI Constitutional: denies: fever Eyes: denies: eye discharge ENT: denies: epistaxis Respiratory: denies: cough Cardiovascular: denies: chest pain Gastrointestinal: denies: abdominal pain Musculoskeletal: denies: back pain Neurological: denies: headache Psychiatric: denies: homicidal thoughts, suicidal thoughts ED Past Medical Hx - Past Medical History Hx Psychiatric Treatment: Yes (schizophrenia) - Surgical History Past Surgical History?: No - Social History Smoking Status: Unknown if ever smoked - Medications Home Medications: Home Medications Medication Instructions Recorded Confirmed Last Taken Type Unobtainable 01/10/18 01/10/18 Unknown History ED Physical Exam - General Limitations: Other (patient is a poor historian) General appearance: alert, in no apparent distress - Head Head exam: Present: atraumatic, normocephalic - Eye Eye exam: Present: normal appearance, EOMI - ENT ENT exam: Present: normal exam, normal orophraynx, mucous membranes moist, normal external ear exam - Neck Neck exam: Present: normal inspection, full ROM. Absent: tenderness, mening ismus - Respiratory Respiratory exam: Present: normal lung sounds bilaterally. Absent: respiratory distress - Cardiovascular Cardiovascular Exam: Present: regular rate, normal rhythm, normal heart sounds. Absent: bradycardia, tachycardia, irregular rhythm, systolic murmur, diastolic murmur, rubs, gallop - GI/Abdominal GI/Abdominal exam: Present: soft. Absent: distended, tenderness, guarding, rebound, rigid, pulsatile mass - Extremities Exam Extremities exam: Present: normal inspection, full ROM, other (there is no long bony tenderness. The muscular compartments are soft. 2+ pulses noted in the bilateral upper extremities.). Absent: calf tenderness - Back Exam Back exam: Present: normal inspection, full ROM. Absent: tenderness, CVA tenderness (R), paraspinal tenderness, vertebral tenderness - Neurological Exam Neurological exam: Present: alert, other (Extraocular movements intact. Tongue midline. No facial droop. Facial sensation intact to light touch in the V1, V2, V3 distribution bilaterally. 5 and 5 strength in 4 extremities.. Sensation is intact to light touch in 4 extremities.). Absent: motor sensory deficit - Psychiatric Psychiatric exam: Absent: homicidal ideation, suicidal ideation - Skin Skin exam: Present: warm, dry, intact, normal color. Absent: rash ED Course Vital Signs 04/08/18 04/08/18 03:59 04:43 Temperature 98.9 F Pulse Rate 87 Respiratory 18 20 Rate Blood Pressure 102/80 O2 Sat by Pulse 98 Oximetry ED Medical Decision Making - Lab Data Result diagrams: 04/08/18 04:39 04/08/18 04:39 Vital Signs 04/08/18 04/08/18 03:59 04:43 Temperature 98.9 F Pulse Rate 87 Respiratory 18 20 Rate Blood Pressure 102/80 O2 Sat by Pulse 98 Oximetry Lab Results 04/08/18 04/08/18 04/08/18 Range/Units 04:39 04:39 04:39 WBC (4.5-11.0) K/mm3 RBC (3.65-5.03) M/mm3 Hgb (10.1-14.3) gm/dl Hct (30.3-42.9) % MCV (79-97) fl MCH (28-32) pg MCHC (30-34) % RDW (13.2-15.2) % Plt Count (140-440) K/mm3 Lymph % (Auto) (13.4-35.0) % [place] % (Auto) (0.0-7.3) % Eos % (Auto) (0.0-4.3) % Baso % (Auto) (0.0-1.8) % Lymph # (1.2-5.4) K/mm3 [place] # (0.0-0.8) K/mm3 Eos # (0.0-0.4) K/mm3 Baso # (0.0-0.1) K/mm3 Seg Neutrophils % (40.0-70.0) % Seg Neutrophils # (1.8-7.7) K/mm3 Sodium 138 (137-145) mmol/L Potassium 4.2 (3.6-5.0) mmol/L Chloride 100.9 (98-107) mmol/L Carbon Dioxide 26 (22-30) mmol/L Anion Gap 15 mmol/L BUN 12 (7-17) mg/dL Creatinine 0.5 L (0.7-1.2) mg/dL Estimated GFR > 60 ml/min BUN/Creatinine Ratio 24 % Glucose 107 H (65-100) mg/dL Calcium 8.8 (8.4-10.2) mg/dL Salicylates < 0.3 L (2.8-20.0) mg/dL Acetaminophen < 5.0 L (10.0-30.0) ug/mL Plasma/Serum Alcohol (0-0.07) % 04/08/18 04/08/18 Range/Units 04:39 04:39 WBC 6.5 (4.5-11.0) K/mm3 RBC 4.19 (3.65-5.03) M/mm3 Hgb 11.8 (10.1-14.3) gm/dl Hct 35.1 (30.3-42.9) % MCV 84 (79-97) fl MCH 28 (28-32) pg MCHC 34 (30-34) % RDW 14.3 (13.2-15.2) % Plt Count 220 (140-440) K/mm3 Lymph % (Auto) 41.7 H (13.4-35.0) % [place] % (Auto) 8.7 H (0.0-7.3) % Eos % (Auto) 4.3 (0.0-4.3) % Baso % (Auto) 1.2 (0.0-1.8) % Lymph # 2.7 (1.2-5.4) K/mm3 [place] # 0.6 (0.0-0.8) K/mm3 Eos # 0.3 (0.0-0.4) K/mm3 Baso # 0.1 (0.0-0.1) K/mm3 Seg Neutrophils % 44.1 (40.0-70.0) % Seg Neutrophils # 2.9 (1.8-7.7) K/mm3 Sodium (137-145) mmol/L Potassium (3.6-5.0) mmol/L Chloride (98-107) mmol/L Carbon Dioxide (22-30) mmol/L Anion Gap mmol/L BUN (7-17) mg/dL Creatinine (0.7-1.2) mg/dL Estimated GFR ml/min BUN/Creatinine Ratio % Glucose (65-100) mg/dL Calcium (8.4-10.2) mg/dL Salicylates (2.8-20.0) mg/dL Acetaminophen (10.0-30.0) ug/mL Plasma/Serum Alcohol < 0.01 (0-0.07) % - Medical Decision Making Differential diagnosis, including not limited to: Disorganized behavior, homelessness, medical clearance Assessment and plan: 37-year-old female with a primary complaint of homelessness to nursing staff. The patient has not made any complaints of any physical pain, the patient has endorsed no homicidality or suicidality. Laboratory studies were ordered prior to my evaluation, and were unremarkable. The patient indica jing that she is not . The patient does not meet 1013 criteria. Her physical examination is unremarkable, and she has not endorsed any acute medical complaints. There does not appear to be an acute medical emergency condition at this time. Case management consult has been requested. The patient will be discharged to the waiting room, where she can await case management evaluation for outpatient resources. Critical care attestation.: If time is entered above; I have spent that time in minutes in the direct care of this critically ill patient, excluding procedure time. ED Disposition Clinical Impression: Homelessness Disposition: DC-01 TO HOME OR SELFCARE Is pt being admited?: No Does the pt Need Aspirin: No Condition: Stable Additional Instructions: Continue outpatient medications. Follow up with the resources that were provided to the patient by the special education case manager. Please return to the emergency room right away with new, worsening or different symptoms. Referrals: TITUS EALR [Primary Care Provider] - as needed
[2018-04-08 07:19] VITALS: BP 112/76
== END 2018-04-08 07:18 | disposition home or self-care (01) ==
LOC: ED 01:05
DX: F20.9 Schizophrenia, unspecified (principal); Z59.0 Homelessness
CPT/HCPCS: 36415; 80048; 85025; 99284; G0480; 80320